=== PATIENT | female | born 1980 | race Caucasian/White ===

== ENCOUNTER → 2018-11-29 | Outpatient (CLI) | payer BC, OTHER ==
--- NOTE | 2018-11-29 15:09 | KCIC ---
MRI Brain without contrast History: Numbness and tingling, left-sided weakness Technique: Multiplanar, multisequential noncontrast MR imaging was performed of the brain. Comparison: None Findings: There is no evidence of recent infarct or cytotoxic edema. The ventricles, sulci, and cisterns are within normal limits in size and configuration. There is no significant midline shift, intraaxial mass effect, or focal abnormal extra-axial fluid collection is a small focus of hemosiderin deposition of the right parasagittal frontal lobe, subtle associated central T2 hyperintense signal, no associated edema or mass effect. Just posteriorly, there are linear foci of decreased signal on all sequences, pattern suggestive of developmental venous anomaly. There is a separate small focus of T2 and FLAIR hyperintense signal of the right quach radiata. There is preservation of the major intracranial flow-voids at the skull base. The mastoid air cells are aerated. The cerebellar tonsils are normal in location. There is no significant abnormality of the pineal gland or pituitary gland. There is patchy mild bilateral ethmoid air cell mucosal thickening. There is preserved marrow signal of the clivus. Impression: 1. 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 There is a separate small focus of likely nonspecific gliosis of the right quach radiata. Electronically signed by: Vitaliy George MD (11/29/2018 3:06 PM) [id number]
== END | disposition home or self-care (01) ==
LOC: KCIC MRI 13:35
PROVIDERS: ATTEND Nurse Practitioner
DX: J34.89 Other specified disorders of nose and nasal sinuses (principal)
CPT/HCPCS: 70551

== ENCOUNTER → 2018-12-17 | Outpatient (CLI) | payer BC ==
[~2018-12-17] MED LIST: IOHEXOL 300 MG/ML 100ML VIAL. IV ONE
--- NOTE | 2018-12-17 14:21 | KCIC ---
CTA head History: Abnormality on recent MRI, numbness, burning sensation of left side of body Technique: Noncontrast CT imaging was performed of the head in conjunction with this exam. After bolus of intravenous contrast, volumetric CT data acquisition was acquired of the head. Multiplanar reconstruction images to include MIP and 3-D reconstruction images are submitted. Exposure: One or more of the following individualized dose reduction techniques were utilized for this examination: 1. Automated exposure control 2. Adjustment of the mA and/or kV according to patient size 3. Use of iterative reconstruction technique. Comparison: MRI brain exam November 29, 2018 Any determination of stenosis is based on NASCET criteria. Findings: Noncontrast head: There is no evidence of acute intracranial hemorrhage or mass effect. Ventricular size is within normal limits. Bennett-white differentiation of the major vascular territories is maintained. CTA: There is some motion degradation. Both vertebral arteries constitute the basilar artery, dominant right vertebral artery. There is visualization of the bilateral PICAs, AICAs not well-visualized on either side on this exam. There is visualization of bilateral superior cerebellar arteries. There are small caliber posterior communicating arteries bilaterally. There is visualization of the internal carotid arteries bilaterally at the skull base. There is patent anterior communicating artery. There is visualization of the major venous sinuses, dominant right transverse and sigmoid sinuses compared with the left, likely hypoplastic proximal left transverse venous sinus. There is a larger vein of the right parasagittal parietal region at site of MRI change, appearance of developmental venous anomaly. Impression: 1. No intracranial aneurysm or stenosis is identified. 2. There is a larger vein of the right parasagittal parietal lobe at site of MRI change, again evidence of developmental venous anomaly. Electronically signed by: Vitaliy George MD (12/17/2018 2:18 PM) [id number]
== END ==
LOC: KCIC CT 10:09
PROVIDERS: ATTEND Psychiatry & Neurology Neurology with Special Qualifications in Child Neurology
DX: D18.02 Hemangioma of intracranial structures (principal); F17.200 Nicotine dependence, unspecified, uncomplicated
CPT/HCPCS: 70496; Q9967

== ENCOUNTER → 2019-12-17 | Outpatient (CLI) | payer BC ==
--- NOTE | 2019-12-17 10:18 | RAD ---
DATE: 12/17/2019 8:34 AM EXAM: MAMMO RAFAEL VEENA ARAYAAT, BREAST BILATERAL LIMITED ULTRASOUND HISTORY: 39-year-old woman with a palpable lump in the left breast identified on clinical breast exam by her referring clinician. . Family history of breast cancer in maternal grandmother in her 70s. COMPARISON: None. This will be a baseline. Technique: Bilateral CC, X CCL and MLO views of the breasts were performed. Bilateral breast tomosynthesis was performed in CC and MLO projections. This study was interpreted with the benefit of Computerized Aided Detection (CAD). Targeted ultrasound of both breasts in the area of palpable concern in the left breast and of mammographic interest in the right breast was also performed. FINDINGS: Breast Density: HETERO The breast parenchyma Is heterogeneously dense, which could reduce sensitivity of mammography. Breast parenchyma level C In the left breast, a circumscribed oval isodense 1.7 cm mass in the superior left breast slightly medial of midline corresponds with the area of palpable concern as indicated with a triangle marker at the skin surface. An incidental benign intramammary lymph node in the upper outer quadrant left breast is also seen. This mass was pursued with targeted left breast ultrasound, revealing a simple cyst at the 11:00 position 4.5 cm from the nipple measuring 1.9 cm on ultrasound. This correlates with the palpable and mammographic finding and is benign. In the right breast, 2 circumscribed oval masses are identified superiorly on the MLO tomographic series (image 41 of 58 on the MLO views). These were pursued for targeted right breast ultrasound and identified sonographically benign cysts at the 12:00 position 2 cm from the nipple measuring 1 cm and slightly deeper, a sonographically benign 9 mm cyst at the 12:00 position 4 cm from the nipple. These are benign and correspond with the mammographic findings. IMPRESSION: Benign findings on bilateral diagnostic mammogram and targeted breast ultrasound. No evidence of malignancy. BI-RADS CATEGORY: 2 BENIGN FINDING(S) RECOMMENDED FOLLOW-UP: CLIN FOLLOW UP IMAGING CLINICALLY INDICATED Annual age-appropriate screening mammography is recommended, unless clinically indicated sooner based on symptoms or change in physical exam. PQRS compliance statement: Patient information was entered into a reminder system with a target due date for the next mammogram. Mammography is a sensitive method for finding small breast cancers, but it does not detect them all and is not a substitute for careful clinical examination. A negative mammogram does not negate a clinically suspicious finding and should not result in delay in biopsying a clinically suspicious abnormality. "Our facility is accredited by the [employer] Mammography Program."
== END | disposition home or self-care (01) ==
LOC: MAMMO 08:15
PROVIDERS: ATTEND Obstetrics & Gynecology
DX: N63.21 Unspecified lump in the left breast, upper outer quadrant (principal); N60.02 Solitary cyst of left breast; N60.01 Solitary cyst of right breast; N63.20 Unspecified lump in the left breast, unspecified quadrant
CPT/HCPCS: 76641; 77066; G0279; 77062